=== PATIENT | male | born 1965 | race Asian ===

== ENCOUNTER 2022-01-10 12:04 | Emergency (ER) | payer OTHER ==
[2022-01-10] MEDS ORDERED: SODIUM CHLORIDE 1,000 ML IV SCH (12:30)
[2022-01-10 12:33] VITALS: TEMP 97.9; BMI 21.2
[2022-01-10] MEDS ORDERED: ACETAMINOPHEN 1000 MG/100 ML BAG IVPB ONE (13:08)
[2022-01-10] MEDS ORDERED: ACETAMINOPHEN INJECTION 100 ML IVPB ONE (13:10)
[2022-01-10 13:22] LABS: BASO % 0.2 % (0-2.0); EOS % 0.6 % (0-4.5); HEMATOCRIT 45.1 % (35.4-49); HEMOGLOBIN 15.5 GM/dL (11.7-16.9); LYMPH % 16.6 % (8-40); MCH 29.4 pg (25.7-33.7); MCHC 34.3 g/dl (32.0-35.9); MEAN CELL VOLUME 85.7 fl (80-96); MEAN PLT VOLUME 8.6 fl (7.5-11.1); MONO % 6.3 % (3.8-10.2); NEUT % 76.3 % (42.8-82.8); PLATELET COUNT 191 10^3/uL (134-434); RBC 5.26 M/mm3 (4.00-5.60); RDW 13.9 % (11.9-15.9)
[2022-01-10] MEDS ORDERED: METOCLOPRAMIDE HCL INJECTION 10 MG/2 ML VIAL IVPB ONE (13:26)
[2022-01-10 13:32] LABS: INR 1.01 (0.83-1.09); PROTHROMBIN TIME (PATIENT) 11.6 SEC (9.7-13.0)
[2022-01-10 13:34] LABS: ACTIVATED PTT 33.8 SECONDS (25.2-36.5)
[2022-01-10] MEDS ORDERED: METOCLOPRAMIDE HCL INJECTION 10 MG/2 ML VIAL ONE (13:45)
[2022-01-10 13:48] LABS: ALBUMIN 4.2 g/dl (3.4-5.0); BLOOD UREA NITROGEN 16.1 mg/dL (7-18); CALCIUM 9.5 mg/dL (8.5-10.1)
[2022-01-10 13:50] LABS: CREATININE 0.8 mg/dL (0.55-1.3)
[2022-01-10 13:52] LABS: BILIRUBIN,TOTAL 0.7 mg/dL (0.2-1)
[2022-01-10 13:53] LABS: TOT PROT 7.6 g/dl (6.4-8.2)
[2022-01-10 16:39] VITALS: BP 140/84; PULSE 65
== END 2022-01-10 18:00 | disposition home or self-care (01) ==
LOC: JER 12:04
PROC: 3E033GC Introduction of Other Therapeutic Substance into Peripheral Vein, Percutaneous Approach (ICD-10-PCS; principal; 2022-01-10)
DX: R51.9 Headache, unspecified (principal); R20.2 Paresthesia of skin
CPT/HCPCS: 36415; 70450-TC; 80053; 80061; 82962; 83036; 84484; 85025; 85610; 85730; 86850; 86900; 86901; 93005; 93010; 99281-25